=== PATIENT | female | born 1935 | race Caucasian/White ===

== ENCOUNTER → 2016-10-24 | Outpatient (CLI) | payer MEDICARE, OTHER ==
--- NOTE | ~2016-10-24 | MY11 ---
[facility] A Service [facility] RADIOLOGY TEXT RESULTS PATIENT: JASPAL HAMM LOCATION: [facility] : 33 UNIT #: [id number] AGE: [address]: Uziel Vanegas MD SEX: F ORDER DR: [id number] [address] [address] [id number] O MR#: [id number] Acc #: [id number] NAME: JASPAL HAMM : 1935 SEX: F STUDY DATE/TIME: 10/24/2016 12:14 UNIT: [facility] ROOM: STUDY DESCRIPTION: MY Mammogram Screening Dig Mark Attending Physician: Uziel Vanegas M.D. Referring Physician: Uziel Vanegas M.D. Ordering Physician: Uziel Vanegas M.D. Primary Care Physician: Uziel Vanegas M.D. MEDICAL IMAGING REPORT This report is preliminary unless electronic signature is present. EXAM Digital screening mammogram, 10/24/2016, [facility] HISTORY An 81-year-old woman, no risk elevation. Annual screening. COMPARISON STUDIES Comparison mammograms date to 01/14/2010 with most recent 10/19/2015. FINDINGS Digital imaging of each breast was completed utilizing screening protocol. Review includes FDA-approved CAD device. Breast parenchyma is predominantly fatty replaced bilaterally. Subareolar duct prominence is stable in each breast. There is no interval occurring mass. There are no suspicious microcalcifications and no architectural deformity. IMPRESSION Stable benign mammogram. Annual screening recommended. BIRADS II. Patients over the age of 40 are entered into a reminder system with target due date for the next mammogram. A result letter will also be sent to the patient. BIRADS: 2 Benign Finding Dictated by... Scott Sommer M.D. THIS IS AN ELECTRONICALLY VERIFIED REPORT Scott Sommer M.D. at 10/24/2016 3:31 PM [facility] A Service [facility] RADIOLOGY TEXT RESULTS PATIENT: JASPAL HAMM LOCATION: [facility] : 34 UNIT #: [id number] AGE: [address]: Uziel Vanegas MD SEX: F ORDER DR: Samuel TD: 10/24/2016 15:09 JOB #: [id number] MEDICAL IMAGING REPORT
== END | disposition home or self-care (01) ==
LOC: SMAM 11:24
DX: Z12.31 Encounter for screening mammogram for malignant neoplasm of breast (principal)
CPT/HCPCS: G0202